=== PATIENT | female | born 1960 | race Caucasian/White ===

== ENCOUNTER 2020-05-12 09:46 | Outpatient (CLI) | payer SELFPAY | END 2020-05-12 09:47 | disposition home or self-care (01) | PROVIDERS: PCP Family Medicine | DX: E06.3 Autoimmune thyroiditis (principal); R73.03 Prediabetes; K58.2 Mixed irritable bowel syndrome; R53.83 Other fatigue | CPT/HCPCS: 99199; 36415 ==

== ENCOUNTER 2020-07-21 09:18 | Outpatient (CLI) | payer BC, SELFPAY ==
--- NOTE | ~2020-07-21 | MM_ITS ---
EXAMINATION: MM screening archie BI w danna HISTORY: Screening mammogram TECHNIQUE: Craniocaudal and mediolateral oblique 3-D tomosynthesis images were obtained and synthetic 2-D images were generated. CAD analysis was submitted and interpreted. COMPARISON: 07/14/2019, 05/19/2018, 02/10/2016 bilateral digital screening mammogram examinations BREAST PARENCHYMAL COMPOSITION: There are scattered areas of fibroglandular density. FINDINGS: Stable mild fibroglandular asymmetry. There is no evidence of suspicious mass, calcificatio n, or architectural distortion to suggest malignancy in either breast. There has been no suspicious i nterval change. IMPRESSION: 1. No mammographic evidence of malignancy. 2. Recommend routine screening mammography in one year. BI-RADS Category 2: Benign finding(s). Reviewed, dictated and finalized at location A. [employer]
== END 2020-07-21 09:19 | disposition home or self-care (01) ==
LOC: ANHIMG 09:20
PROVIDERS: PCP Family Medicine; Visit Provider Family Medicine
DX: Z12.31 Encounter for screening mammogram for malignant neoplasm of breast (principal)
CPT/HCPCS: 77063; 77067

== ENCOUNTER → 2021-01-28 00:48 | Outpatient (CLI) | payer BC, SELFPAY ==
[2021-01-28 18:26] LABS: SARS-CoV-2 RNA PCR Negative
== END ==
PROVIDERS: PCP Family Medicine; Visit Provider Internal Medicine Gastroenterology
DX: Z01.812 Encounter for preprocedural laboratory examination (principal); Z20.822 Contact with and (suspected) exposure to COVID-19
CPT/HCPCS: C9803; U0003; U0005

== ENCOUNTER 2021-01-31 00:27 | Day surgery (SDC) | payer BC, SELFPAY ==
[2021-01-19 10:21] VITALS: BMI 20.9
[2021-01-31 06:21] VITALS: BP 104/71; PULSE 59; RESP 18; TEMP 35.9; O2SAT 99; BMI 21.1
[2021-01-31] MEDS: LACTATED RINGERS 1,000 ML 150 ML IV CONT (06:36)
--- NOTE | 2021-01-31 06:59 | WPDANESEPPF ---
Anes - Initial Pre Proc Eval Procedure: Operation Date: 01/31/21 07:30 Proposed Procedures p Esophagogastroduodenoscopy & Screening Colonoscopy - Nithin Ballard MD Date/Time: 01/31/21 06:59 Surgeon: Nithin Ballard MD Pre Op Diagnosis: family hx colon ca, hx of colon polyps, dysphagia Patient Data Age: 60 Gender: F Height: 1.68 m Weight: 59.4 kg Last Vital Signs Pulse 59 L 01/31/21 06:21 Resp 18 01/31/21 06:21 BP 104/71 01/31/21 06:21 Pulse Ox 99 01/31/21 06:21 Allergies Allergy/AdvReac Type Severity Reaction Status Date / Time No Known Allergies Allergy Unverified 01/31/21 06:20 Home Medications Medication Instructions Recorded Confirmed Type Adults Multivitamin 1 tab-cap PO DAILY 01/19/21 01/19/21 History [place] 3 1 tab-cap PO BID 01/19/21 01/19/21 History cholecalciferol (vitamin D3) 5,000 unit PO DAILY 01/19/21 01/19/21 History [Vitamin D3] levothyroxine [Tirosint] 50 mcg PO DAILY 01/19/21 01/19/21 History Patient hx anesthesia problems: none Family hx anesthesia problems: none PMFSH Past Medical History Medical History (Updated 01/31/21 @ 07:04 by Owen Bernstein MD) Gastro-esophageal reflux disease without esophagitis 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 Social History Social History Smoking status: Never smoker Alcohol intake: current Drinks per week: 1 Substance use type: does not use Living arrangements: with family Spiritual care concerns: No Anes - Eval Final PreProcedure Day of Procedure 01/31/21 06:59 Patient weight: normal Heart: regular rate and rhythm Lungs: clear to auscultation and normal air movement Airway: Mallampati scale class II Neurological: alert and oriented Last oral intake: >/= 8 hours ASA classification: II Emergent: no Anesthetic plan: proceed Anesthesia type and monitoring: general GIVS Informed Consent: The patient's anesthetic plan and its attendant risks and benefits were discussed with the patient/family/POA. Questions were solicited and answers provided to the satisfaction of the patient/family/POA.
--- NOTE | 2021-01-31 07:39 | WPDGICN ---
Assessment and Plan Assessment and plan (1) History of colon polyps: Code(s): Z86.010 - Personal history of colonic polyps Status: Acute Assessment and Plan: Patient has a history of colon polyps in the past. For this reason screening colonoscopy been advised every 5 years. (2) Dysphagia: Qualifiers: Dysphagia type: unspecified Qualified Code(s): R13.10 - Dysphagia, unspecified Code(s): R13.10 - Dysphagia, unspecified Status: Acute Assessment and Plan: Patient has a sensation of soreness in her throat. Plan is for EGD to exclude esophagitis or narrowing. This may represent globus phenomenon. Further recommendations will be given after endoscopy. (3) Family history of colonic polyps: Code(s): Z83.71 - Family history of colonic polyps Status: Acute Assessment and Plan: Patient's mother had colon polyps requiring colon resection her maternal grandfather had colon cancer. Screening colonoscopy is been advised every 5 years. GI Consult Note Consult date/time: 01/31/21 07:39 HPI: Jacki Decker is a 60 year old female Complains of difficulty swallowing over the last 1 year. She states food passes easily. However she has a sensation of closure and irritation in her throat. She denies any weight loss or bleeding. Sensation as constant not necessarily related to dietary intake. She states many years ago was told she had an esophageal web. Patient presents today for EGD patient also has a history of colon polyp most recently 2010. Family history is significant that her mother has had colon polyps and required colon resection her grandfather had colon cancer. Last colonoscopy was in 2017. Patient presents today for follow-up examination. 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 Social History Social History Smoking status: Never smoker Alcohol intake: current Drinks per week: 1 Substance use type: does not use Living arrangements: with family Spiritual care concerns: No Meds Home Medications and Allergies Home Medications Medication Instructions Recorded Confirmed Type Adults Multivitamin 1 tab-cap PO DAILY 01/19/21 01/19/21 History [place] 3 1 tab-cap PO BID 01/19/21 01/19/21 History cholecalciferol (vitamin D3) 5,000 unit PO DAILY 01/19/21 01/19/21 History [Vitamin D3] levothyroxine [Tirosint] 50 mcg PO DAILY 01/19/21 01/19/21 History Allergies Allergy/AdvReac Type Severity Reaction Status Date / Time No Known Allergies Allergy Unverified 01/31/21 06:20 Vital Signs Vital Signs - 24 hr 01/31/21 06:21 Temperature 96.6 F L Pulse Rate 59 L Respiratory Rate 18 Blood Pressure 104/71 Pulse Oximetry 99 Exam Narrative: Physical exam reveals patient be alert. Vital signs stable. HEENT exam is unremarkable. Patient is anicteric. Lungs are clear to auscultation and percussion. Heart is without murmur or extra sounds. Abdominal exam bowel sounds are present soft nontender with no hepatosplenomegaly. Digital external rectal exam is normal.
[2021-01-31 08:04] VITALS: BP 83/48; PULSE 53; RESP 13; O2SAT 99
[2021-01-31 08:14] VITALS: BP 91/49; PULSE 54; RESP 13; O2SAT 99
[2021-01-31 08:24] VITALS: BP 96/57; PULSE 51; RESP 14; O2SAT 99
== END 2021-01-31 08:45 | disposition home or self-care (01) ==
PROVIDERS: PCP Family Medicine; Visit Provider Internal Medicine Gastroenterology
PROC: 0DJ08ZZ Inspection of Upper Intestinal Tract, Via Natural or Artificial Opening Endoscopic (ICD-10-PCS; CPT 43235; principal; 2021-01-31 07:30)
DX: Z12.11 Encounter for screening for malignant neoplasm of colon (principal); Z83.71 Family history of colonic polyps; Z86.010 Personal history of colon polyps; K57.30 Diverticulosis of large intestine without perforation or abscess without bleeding; K64.8 Other hemorrhoids; K63.5 Polyp of colon; F45.8 Other somatoform disorders; Z80.0 Family history of malignant neoplasm of digestive organs; E06.3 Autoimmune thyroiditis
CPT/HCPCS: 45385; 43450; 88305; J7120

== ENCOUNTER 2021-10-26 07:13 | Outpatient (CLI) | payer BC, SELFPAY ==
--- NOTE | ~2021-10-26 | MM_ITS ---
EXAMINATION: MM screening [facility] BI w danna HISTORY: Screening TECHNIQUE: Craniocaudal and mediolateral oblique 3-D tomosynthesis images were obtained and synthetic 2-D images were generated. CAD analysis was submitted and interpreted. COMPARISON: Comparison to multiple prior studies sequentially, with oldest reviewed study dated 12/2013. BREAST PARENCHYMAL COMPOSITION: There are scattered areas of fibroglandular density. FINDINGS: There is no evidence of suspicious mass, calcification, or architectural distortion to sugg est malignancy in either breast. There has been no suspicious interval change. IMPRESSION: 1. No mammographic evidence of malignancy. 2. Recommend routine screening mammography in one year. BI-RADS Category 1: Negative Reviewed, dictated and finalized at location A.
== END 2021-10-26 07:14 | disposition home or self-care (01) ==
PROVIDERS: PCP Family Medicine; Visit Provider Family Medicine
DX: Z12.31 Encounter for screening mammogram for malignant neoplasm of breast (principal)
CPT/HCPCS: 77063; 77067

== ENCOUNTER → 2022-08-08 07:47 | Outpatient (CLI) | payer BC, SELFPAY ==
--- NOTE | ~2022-08-08 | US_ITS ---
US breast LT complete DATE: 08/08/2022 10:46 INDICATION: Left breast lump at 6 7 7:00 TECHNIQUE: High-resolution real-time and color flow imaging of complete left breast including all 4 q uadrants and subareolar area FINDINGS: Please refer to combined 08/08/2022 bilateral diagnostic mammogram and left complete ultrasou nd report IMPRESSION: BI-RADS Category 1: Negative Reviewed, dictated and finalized at Location A. Reviewed, dictated and finalized at location C. AGE AND MAIL AGENT
--- NOTE | ~2022-08-08 | MM_ITS ---
EXAMINATION: MM diagnostic archie BI w danna HISTORY: Left breast lump at approximately 6-7:00 TECHNIQUE: Bilateral ML, MLO and CC 3-D tomosynthesis images were performed and synthetic 2-D images were generated. CAD analysis was submitted and interpreted. High resolution complete left breast ultr asound examination including all 4 quadrants and subareolar area was performed. COMPARISON: 10/26/2021, 07/21/2020, 07/14/2019, 05/09/2018 bilateral screening mammogram examinations BREAST PARENCHYMAL COMPOSITION: There are scattered areas of fibroglandular density. FINDINGS: MAMMOGRAPHIC FINDINGS: Stable mild perihilar asymmetry since 05/09/2018. No suspicious mass or architectural distortion, malignant calcification, skin thickening or retractio n or significant new or developing density is detected. ULTRASOUND: No suspicious mass or shadowing of the left breast is detected. No cyst or other significant sonograp hic finding. IMPRESSION: 1. No mammographic evidence of malignancy 2. Routine mammographic screening is recommended. BI-RADS Category 1: Negative Reviewed, dictated and finalized at location C. TENANCE AIDE
== END ==
DX: N63.24 Unspecified lump in the left breast, lower inner quadrant (principal)
CPT/HCPCS: 76641; 77062; 77066; G0279

== ENCOUNTER 2022-09-05 07:40 | Outpatient (CLI) | payer BC, SELFPAY ==
--- NOTE | ~2022-09-05 | DEXA_ITS ---
Bone Density Report Name: LUIS ANTONIO RIVERO Age: 61 Sex: Female Ethnicity: White Date of : 1960 Indication: postmenopausal; screening for osteoporosis; parental hip fracture; secondary osteoporosis; Referring Provider: UNKNOWN, UNKNOWN Study: Bone densitometry was performed. Exam Date: September 05, 2022 Accession number: [id number] Bone Density: Region BMD T-score Z-score Classification AP Spine(L1-L4) 0.761 -2.6 -1.1 Osteoporosis Femoral Neck (Left) 0.562 -2.6 -1.2 Osteoporosis Total Hip (Left) 0.730 -1.7 -0.7 Osteopenia Femoral Neck (Right) 0.522 -2.9 -1.6 Osteoporosis Total Hip (Right) 0.708 -1.9 -0.9 Osteopenia Total Hip Mean 0.719 -1.8 -0.8 Osteopenia World Health Organization criteria for BMD impression classify patients as: Normal (T-score at or above -1.0), Osteopenia (T-score between -1.0 and -2.5), or Osteoporosis (T-score at or below -2.5). 10-year Fracture Risk: FRAX not reported because: Some T-score for Spine Total or Hip Total or Femoral Neck at or below -2.5 Clinical Information Provided by Patient: Parent has had a hip fracture Has secondary osteoporosis Has used the following medications: Vitamin D, Calcium Patient maximum height was 66 Menopause Age: 43 Onset of menses at age 12 Number of children 1 Impression: The patient has osteoporosis, based on the Right Femoral Neck T-score. The patient has risk factors, including: parental hip fracture. Discussion: INCREASED RISK OF FRACTURE. BONE DENSITY IS UNDESIRABLY LOW AT ONE OR MORE SKELETAL SITES, CONSISTENT WITH POSTMENOPAUSAL OSTEOPOROSIS. This patient's lowest T-score meets the World Health Organization's (WHO) criteria for osteoporosis at one or more sites (T-score -2.5 or below). In untreated patients, the risk of osteoporotic fracture increases approximately two-fold for each 1.0 SD decrease in T-score. Low bone density is not the only risk factor for fracture; also consider factors such as patient's age, frailty or poor health, risk of falling, risk of injury, previous osteoporotic fracture, family history of osteoporosis, cigarette smoking, low body weight, etc. Not everyone with low bone mineral density has osteoporosis; osteomalacia and other metabolic bone disorders should also be considered. Patients who have osteoporosis should be evaluated for specific diseases and conditions (secondary causes) that may cause or contribute to bone loss. The [place] [employer]ocrinologists (AACE) and National Osteoporosis Foundation (NOF) recommend pharmacologic intervention for all postmenopausal women whose T-score is in this range. The patient should follow a healthful lifestyle (good nutrition with adequate calcium and vitamin D, and appropriate weight-bearing exercise). Follow-Up: Consider a repeat BMD and
== END 2022-09-05 07:41 | disposition home or self-care (01) ==
LOC: ANHIMG 08:12
DX: Z78.0 Asymptomatic menopausal state (principal); M81.0 Age-related osteoporosis without current pathological fracture; M85.852 Other specified disorders of bone density and structure, left thigh; M85.851 Other specified disorders of bone density and structure, right thigh
CPT/HCPCS: 77080

== ENCOUNTER → 2023-08-12 07:09 | Outpatient (CLI) | payer BC, SELFPAY ==
--- NOTE | ~2023-08-12 | MM_ITS ---
EXAMINATION: MM screening [facility] BI w danna HISTORY: Screening mammogram TECHNIQUE: Craniocaudal and mediolateral oblique 3-D tomosynthesis images were obtained and synthetic 2-D images were generated. CAD analysis was submitted and interpreted. COMPARISON: 06/07/2023, 10/26/2021, 05/21/2021 BREAST PARENCHYMAL COMPOSITION: There are scattered areas of fibroglandular density. FINDINGS: No suspicious mass, calcification, or architectural distortion are identified in either leah ast to suggest malignancy. There has been no suspicious interval change. IMPRESSION: 1. No mammographic evidence of malignancy. 2. Recommend routine screening mammography in one year. BI-RADS Category 1: Negative Reviewed, dictated and finalized at location A. PUNCHER
== END ==
PROVIDERS: PCP Family Medicine; Visit Provider Family Medicine
DX: Z12.31 Encounter for screening mammogram for malignant neoplasm of breast (principal)
CPT/HCPCS: 77063; 77067